=== PATIENT | male | born 1955 | race Two or more races ===

== ENCOUNTER 2017-10-04 20:22 | Emergency (ER) | payer OTHER ==
[~2017-10-04] VITALS: Ht 175.3 cm; Wt 61.1 kg
[~2017-10-04 20:22] MED LIST: FENT1PAT77 TD; OXYC10TA6 PO; SITA1TAB5 PO
[2017-10-04 20:26] VITALS: BP 159/71
[2017-10-04] MEDS ORDERED: DIPH,PERTUSS(ACELL),TET VAC/PF 0.5 ML IM-VACC ONE ×2 (20:45→21:00)
== END 2017-10-04 21:23 | disposition home or self-care (01) ==
LOC: ED 21:00
DX: S61.531A Puncture wound without foreign body of right wrist, initial encounter (principal); E11.9 Type 2 diabetes mellitus without complications; E78.5 Hyperlipidemia, unspecified; X58.XXXA Exposure to other specified factors, initial encounter; Y93.89 Activity, other specified; Y99.8 Other external cause status; Y92.009 Unspecified place in unspecified non-institutional (private) residence as the place of occurrence of the external cause
CPT/HCPCS: 90471; 90715

== ENCOUNTER 2020-02-11 08:10 | Day surgery (SDC) | payer OTHER ==
[~2020-02-11] VITALS: Ht 175.3 cm; Wt 59.8 kg
[~2020-02-11 08:10] MED LIST changes: +FARXIGA; +TRULICITY
[2020-02-11 09:18] VITALS: BP 160/79
[2020-02-11] MEDS ORDERED: SODIUM CHLORIDE 0.9% 1,000 ML IV SCH (09:30)
[2020-02-11] MEDS ORDERED: LIDOCAINE 1%, 10ML ONE (10:07)
[2020-02-11] MEDS ORDERED: FLUMAZENIL 0.1 MG/1 ML, 5ML ONE (10:46)
[2020-02-11] MEDS ORDERED: NALOXONE 1 MG/ML, 2ML ONE (10:46)
[2020-02-11] MEDS ORDERED: FENTANYL PF 100 MCG/2ML ONE (10:46)
[2020-02-11] MEDS ORDERED: MIDAZOLAM 1 MG/ML, 5ML ONE (10:46)
== END 2020-02-11 11:45 | disposition home or self-care (01) ==
LOC: OUT 08:10 → EDSTATUS 10:00 → OUT 11:45
PROVIDERS: ATTEND Specialist
DX: Z45.2 Encounter for adjustment and management of vascular access device (principal); C18.7 Malignant neoplasm of sigmoid colon; E11.9 Type 2 diabetes mellitus without complications; I10 Essential (primary) hypertension
CPT/HCPCS: 36590; 77001; 99156; 99157; J2250; J3010; J2310